=== PATIENT | male | born 1960 | race Caucasian/White ===

== ENCOUNTER 2023-07-27 20:12 | Emergency (ER) | payer OTHER, SELFPAY ==
[2023-07-27 20:16] VITALS: BP 167/98; PULSE 77; TEMP 37.2; O2SAT 98; BMI 27.8
--- NOTE | 2023-07-27 20:29 | ED_ITS ---
HPI - Wound/Laceration General Chief Complaint: Wound/Laceration Stated Complaint: Wound Check Time Seen by Provider: 07/27/23 20:24 Source: patient Mode of arrival: walk-in Limitations: no limitations History of Present Illness HPI narrative: noticed a small area on the right medial ankle that started about 10 days ago. Thought it was a mosquito bite. It has since enlarged with sl drainage and now has new lesions present. Today also has a crack in the skin where the back of his ear attaches to his head. No pain or fever. Not diabetic Related Data Allergies Allergy/AdvReac Type Severity Reaction Status Date / Time No Known Drug Allergies Allergy Verified 07/27/23 20:16 Review of Systems 2 ROS0 Status of ROS 10 or more systems reviewed and unremark able except as noted in history and below Exam Constitutional Vital Signs, click to edit/add: Last Vital Signs Temp 98.9 F 07/27/23 20:16 Pulse 77 07/27/23 20:16 Resp 18 07/27/23 20:16 BP 167/98 H 07/27/23 20:16 Pulse Ox 98 07/27/23 20:16 O2 Del Method Room Air 07/27/23 20:16 Common normals: no apparent distress, average body habitus, oriented x3, no limitations, healthy appearing, alert and well nourished [facility] Common normals: normocephalic and head/scalp atraumatic Head images: 2 1. cracked in skin at connection of ear to head. No erythema or bleeding. dry crack Respiratory Common normals: normal respiratory effort, no retractions, no use of accessory muscles and clear to auscultation bilaterally Cardio Common normals: regular rate, regular rhythm, S1 normal heart sound and S2 normal heart sound GI Common normals: Normal to inspection, nondistended, normoactive bowel sounds present, soft to palpation and non-tender Extremity Other: right medial ankle with superficial open wound with dry drainage and then several small 3mm erythematous lesion surrounding it. Mild erythema and sl swelling Neuro Common normals: oriented x3, CN's II-XII intact bilaterally, moves all extremities, no focal motor deficits and no sensory deficits noted Psych Appearance: grossly normal Course Vital Signs Vital signs: Vital Signs Temperature 98.9 F 07/27/23 20:16 Pulse Rate 77 07/27/23 20:16 Respiratory Rate 18 07/27/23 20:16 Blood Pressure 167/98 H 07/27/23 20:16 Pulse Oximetry 98 07/27/23 20:16 Oxygen Delivery Method Room Air 07/27/23 20:16 Temperature 98.9 F 07/27/23 20:16 Pulse Rate 77 07/27/23 20:16 Respiratory Rate 18 07/27/23 20:16 Blood Pressure 167/98 H 07/27/23 20:16 Pulse Oximetry 98 07/27/23 20:16 Oxygen Delivery Method Room Air 07/27/23 20:16 MDM - Wound/Laceration MDM Narrative Medical decision making narrative: presents with atypical rash right ankle that has appearance of impetigo. Also has crack in skin at attachment of posterior left ear to his head. labs reveal elevated inflammatory markers. Will plan to treat with combination of Doxycycline and bactroban ointment. patient discharged to follow up with his family doctor Lab Data Labs: Lab Results 07/27/23 Range/Units 20:36 WBC 8.6 (4.0-11.0) 10^3/uL RBC 4.55 L (4.70-6.10) 10^6/uL Hgb 13.3 L (14.0-18.0) g/dL Hct 38.7 L (42.0-54.0) % MCV 85.1 (80.0-94.0) fL MCH 29.2 (25.9-34.0) pg MCHC 34.4 (29.9-35.2) g/dL RDW 12.7 (11.0-15.0) % Plt Count 417 (150-450) 10^3/uL MPV 9.9 (9.5-13.5) fL Neut % (Auto) 64.6 (43.0-75.0) % Lymph % (Auto) 24.7 (20.5-60.0) % [place] % (Auto) 7.3 (1.7-12.0) % Eos % (Auto) 2.7 (0.9-7.0) % Baso % (Auto) 0.5 (0.2-2.0) % Neut # (Auto) 5.5 (1.4-6.5) 10^3/uL Lymph # (Auto) 2.1 (1.2-3.8) 10^3/uL [place] # (Auto) 0.6 (0.3-0.8) 10^3/uL Eos # (Auto) 0.2 (0.0-0.7) 10^3/uL Baso # (Auto) 0.0 (0.0-0.1) 10^3/uL Abs Immat Gran (auto) 0.02 (0.00-0.03) 10^3/uL Imm/Tot Granulo (auto) 0.2 (0.0-0.5) % ESR 26 H (<=20) mm/hr Sodium 140 (136-145) mmol/L Potassium 3.7 (3.5-5.1) mmol/L Chloride 104 (98-107) mmol/L Carbon Dioxide 25.1 (21.0-32.0) mmol/L Anion Gap 14.6 BUN 26.0 H (7.0-18.0) mg/dL Creatinine 0.78 (0.70-1.30) mg/dL Est GFR ( Amer) >60 (>=60) Est GFR (Non-Af Amer) >60 (>=60) BUN/Creatinine Ratio 33.3 Glucose 122 H (74-106) mg/dL Calcium 9.7 (8.5-10.1) mg/dL C-Reactive Protein 0.73 H (<=0.50) mg/dL Discharge Plan Discharge Stand Alone Forms: Portal Instructions Chief Complaint: Wound/Laceration Clinical Impression: Ankle cellulitis Patient Disposition: Home, Self-Care Print Language: Kiswahili Instructions: Cellulitis (ED) Additional Instructions: follow up with your doctor next week for recheck Referrals: BENITO CORBETT [Primary Care Provider] - 1 week
[2023-07-27] MEDS: DOXYCYCLINE MONOHYDRATE 100 MG CAPSULE PO (20:38)
[2023-07-27 20:42] LABS: Basophils Percent Auto 0.5 % (0.2-2.0); Eosinophils Absolute Auto 0.2 10^3/uL (0.0-0.7); Eosinophils Percent Auto 2.7 % (0.9-7.0); Hematocrit 38.7 % (42.0-54.0); Hemoglobin 13.3 g/dL (14.0-18.0); Immature Granulocytes Abs Auto 0.02 10^3/uL (0.00-0.03); Immature Granulocytes Pct Auto 0.2 % (0.0-0.5); Lymphocytes Absolute Auto 2.1 10^3/uL (1.2-3.8); Lymphocytes Percent Auto 24.7 % (20.5-60.0); Mean Corpuscular HGB Conc 34.4 g/dL (29.9-35.2); Mean Corpuscular Hemoglobin 29.2 pg (25.9-34.0); Mean Corpuscular Volume 85.1 fL (80.0-94.0); Mean Platelet Volume 9.9 fL (9.5-13.5); Monocytes Absolute Auto 0.6 10^3/uL (0.3-0.8); Monocytes Percent Auto 7.3 % (1.7-12.0); Neutrophils Absolute Auto 5.5 10^3/uL (1.4-6.5); Neutrophils Percent Auto 64.6 % (43.0-75.0); Platelet Count 417 10^3/uL (150-450); Red Blood Count 4.55 10^6/uL (4.70-6.10); Red Cell Distribution Width 12.7 % (11.0-15.0); White Blood Count 8.6 10^3/uL (4.0-11.0)
[2023-07-27 20:51] LABS: Erythrocyte Sedimentation Rate 26 mm/hr (<=20)
[2023-07-27 20:54] LABS: Anion Gap 14.6; BUN Creatinine Ratio 33.3; C Reactive Protein 0.73 mg/dL (<=0.50); Calcium 9.7 mg/dL (8.5-10.1); Carbon Dioxide 25.1 mmol/L (21.0-32.0); Chloride 104 mmol/L (98-107); Estimated GFR (African America >60 (>=60); Estimated GFR (Non-African Ame >60 (>=60); Glucose 122 mg/dL (74-106); Potassium 3.7 mmol/L (3.5-5.1); Sodium 140 mmol/L (136-145)
[2023-07-27 21:29] VITALS: BP 126/86; PULSE 81; O2SAT 96
== END 2023-07-27 21:31 | disposition home or self-care (01) ==
PROVIDERS: Emergency Provider Internal Medicine; PCP Family Medicine
DX: L03.115 Cellulitis of right lower limb (principal)
CPT/HCPCS: 36415; 80048; 85025; 85652; 86140; 87070; 87150; 87186; 99283